=== PATIENT | male | born 1945 | race Two or more races ===

== ENCOUNTER 2022-04-30 13:12 | Emergency (ER) | payer OTHER, MEDICARE ==
[~2022-04-30 13:12] MED LIST: ATOR40TA PO; CLOP75TA33 PO; EZET10TA6 PO; FISH OIL PO; FOLI0.4T6 PO; ISOS30TA84 PO; LISI10TA27 PO; METO50TA7 PO; MULT-1085 PO; NIAC500T23 PO; TERA10CA4 PO; VITA-336 PO
== END 2022-04-30 14:55 | disposition left against medical advice (07) ==
LOC: ER 13:12
DX: K62.5 Hemorrhage of anus and rectum (principal); Z53.21 Procedure and treatment not carried out due to patient leaving prior to being seen by health care provider

== ENCOUNTER 2023-07-16 13:00 | Day surgery (SDC) | payer MEDICARE, OTHER ==
[2023-07-15 09:48] LABS: BASOPHILS % (AUTO) 0.4 % (0-1); EOSINOPHILS # (AUTO) 0.2 X10'3 (0-0.9); EOSINOPHILS % (AUTO) 5.1 % (0-6); HEMATOCRIT 31.9 % (42.0-52.0); HEMOGLOBIN 10.9 g/dl (14.0-17.9); LYMPHOCYTES # (AUTO) 2.1 X10'3 (1.1-4.8); LYMPHOCYTES % (AUTO) 43.3 % (21-51); MEAN CORPUSCULAR HEMOGLOBIN 31.6 PG (27.0-31.0); MEAN CORPUSCULAR HGB CONC 34.3 g/dL (33.0-36.5); MEAN CORPUSCULAR VOLUME 92.3 FL (78-98); MEAN PLATELET VOLUME 8.6 FL (7.4-10.4); MONOCYTES # (AUTO) 0.4 X10'3 (0-0.9); MONOCYTES % (AUTO) 7.6 % (2-12); NEUTROPHILS # (AUTO) 2.1 X10'3 (1.8-7.7); NEUTROPHILS % (AUTO) 43.6 % (42-75); PLATELET COUNT 209 X10'3 (140-440); RED BLOOD COUNT 3.46 X10'6 (4.70-6.10); RED CELL DISTRIBUTION WIDTH 12.4 % (11.5-14.5); WHITE BLOOD COUNT 4.8 X10'3 (4.5-11.0)
[2023-07-15 09:55] LABS: APTT 28 SECONDS (22-32); PROTHROMBIN TIME 10.6 SECONDS (9.0-12.0)
[2023-07-15 10:17] LABS: ALBUMIN 3.7 G/DL (3.4-5.0); ANION GAP 8 (8-16); BLOOD UREA NITROGEN 20 MG/DL (7-18); BUN/CREATININE RATIO 14.5 (10.0-20.0); CALCIUM 8.6 MG/DL (8.5-10.1); CHLORIDE 108 MMOL/L (99-107); CHOL/HDL RATIO 2.1 (0.00-4.99); CHOLESTEROL 119 MG/DL (0-200); CREATININE 1.38 MG/DL (0.60-1.10); GLUCOSE 96 MG/DL (70-104); HDL CHOLESTEROL 58 MG/DL (35-60); LDL CHOLESTEROL 47 MG/DL (50-100); POTASSIUM 4.2 MMOL/L (3.5-5.1); SODIUM 141 MMOL/L (135-145); TOTAL CARBON DIOXIDE 25.4 MMOL/L (24-32); TRIGLYCERIDES 66 MG/DL (20-135); eGFR 50 ML/MIN
[~2023-07-16] VITALS: Ht 160 cm; Wt 60.1 kg
[2023-07-16] VITALS (9 sets, daily range): BP systolic 121–160; BP diastolic 55–66; PULSE 49–54; RESP 12–14; TEMP 98.2; O2SAT 97–100
[2023-07-16] MEDS: normal saline 1,000 ML IV SCH (13:35)
[2023-07-16] MEDS ORDERED: LIDOcaine 1% 30ml preserv. free vial ONE (14:48)
[2023-07-16] MEDS ORDERED: midazolam 1 mg/ML 2ml injection ONE (14:48)
[2023-07-16] MEDS ORDERED: fentaNYL/PF 50MCG/1 ML 2ML syringe ONE (14:48)
[2023-07-16] MEDS ORDERED: iohexol 350MG/ML 100ml bottle IV ONE ×2 (14:49→16:23)
[2023-07-16] MEDS ORDERED: ASPI-1265 PO (15:05)
[2023-07-16] MEDS ORDERED: VITC500T PO (15:07)
[2023-07-16] MEDS ORDERED: FERR325T28 PO (15:07)
[2023-07-16] MEDS: LORazepam 0.5 MG tablet PO PRN (15:18)
[2023-07-16] MEDS: diphenhydrAMINE 25mg capsule PO PRN (15:18)
[2023-07-16] MEDS ORDERED: heparin 1,000unit/ml 10ml vial 10 ML ONE (16:25)
[2023-07-16] MEDS ORDERED: heparin 1,000 UNITS/NS 500ml 500 ML ONE (16:40)
[2023-07-16] MEDS ORDERED: hydrALAZINE 20mg/ml inj. IV ONE (16:51)
[2023-07-16] MEDS ORDERED: HYDROcodone/acetaminophen 10/325mg tab PO PRN (18:20)
[2023-07-16] MEDS ORDERED: HYDROcodone/acetaminophen 5mg/325mg tablet PO PRN (18:20)
== END 2023-07-16 19:50 | disposition home or self-care (01) ==
LOC: SSTAY O 13:00
PROVIDERS: ATTEND Student in an Organized Health Care Education/Training Program
DX: I25.810 Atherosclerosis of coronary artery bypass graft(s) without angina pectoris (principal); T82.855A Stenosis of coronary artery stent, initial encounter; I25.82 Chronic total occlusion of coronary artery; I10 Essential (primary) hypertension; E78.5 Hyperlipidemia, unspecified; D64.9 Anemia, unspecified; I65.29 Occlusion and stenosis of unspecified carotid artery; Z79.899 Other long term (current) drug therapy; Z79.82 Long term (current) use of aspirin; Y84.0 Cardiac catheterization as the cause of abnormal reaction of the patient, or of later complication, without mention of misadventure at the time of the procedure; Y92.89 Other specified places as the place of occurrence of the external cause
CPT/HCPCS: 36415; 80048; 80061; 85025; 85610; 85730; 93005; 93459; 93571; 99152; 99153; J0360; J1644; J2250; J3010; J3490; J7030; Q0163; Q9967; 93572; A6258; A6449; C1751; C1760; C1769; C1894

== ENCOUNTER 2023-07-23 12:50 | Day surgery (SDC) | payer OTHER ==
[~2023-07-23] VITALS: Ht 160 cm; Wt 59.5 kg
[2023-07-23] VITALS (8 sets, daily range): BP systolic 134–160; BP diastolic 50–63; PULSE 48–54; RESP 12–18; TEMP 98; O2SAT 97–98
[~2023-07-23 12:50] MED LIST changes: +ASPI-1265 PO; -CLOP75TA33 PO; +FERR325T28 PO; -FISH OIL PO; -FOLI0.4T6 PO; -NIAC500T23 PO; -TERA10CA4 PO; -VITA-336 PO; +VITC500T PO
[2023-07-23] MEDS ORDERED: diphenhydrAMINE 25mg capsule PO PRN (13:20)
[2023-07-23] MEDS ORDERED: normal saline 1,000 ML IV SCH (13:20)
[2023-07-23] MEDS ORDERED: LORazepam 0.5 MG tablet PO PRN (13:20)
[2023-07-23 13:54] LABS: BASOPHILS % (AUTO) 0.5 % (0-1); EOSINOPHILS # (AUTO) 0.2 X10'3 (0-0.9); HEMATOCRIT 31.6 % (42.0-52.0); HEMOGLOBIN 10.8 g/dl (14.0-17.9); LYMPHOCYTES % (AUTO) 42.6 % (21-51); MEAN CORPUSCULAR HEMOGLOBIN 31.8 PG (27.0-31.0); MEAN CORPUSCULAR HGB CONC 34.2 g/dL (33.0-36.5); MEAN CORPUSCULAR VOLUME 92.9 FL (78-98); MEAN PLATELET VOLUME 8.5 FL (7.4-10.4); MONOCYTES # (AUTO) 0.5 X10'3 (0-0.9); MONOCYTES % (AUTO) 9.7 % (2-12); NEUTROPHILS # (AUTO) 2.1 X10'3 (1.8-7.7); NEUTROPHILS % (AUTO) 43.2 % (42-75); PLATELET COUNT 209 X10'3 (140-440); RED CELL DISTRIBUTION WIDTH 12.9 % (11.5-14.5); WHITE BLOOD COUNT 4.8 X10'3 (4.5-11.0)
[2023-07-23 13:57] LABS: ALBUMIN 4.1 G/DL (3.4-5.0); ANION GAP 11 (8-16); BLOOD UREA NITROGEN 16 MG/DL (7-18); CALCIUM 8.9 MG/DL (8.5-10.1); CHLORIDE 105 MMOL/L (99-107); CREATININE 1.46 MG/DL (0.60-1.10); GLUCOSE 91 MG/DL (70-104); POTASSIUM 4.4 MMOL/L (3.5-5.1); SODIUM 141 MMOL/L (135-145); TOTAL CARBON DIOXIDE 24.7 MMOL/L (24-32); eGFR 47 ML/MIN
[2023-07-23 13:59] LABS: PROTHROMBIN TIME 10.7 SECONDS (9.0-12.0)
[2023-07-23] MEDS ORDERED: VITA400C71 PO (14:14)
[2023-07-23] MEDS ORDERED: CYAN100T43 PO (14:14)
[2023-07-23] MEDS ORDERED: FOLI0.8C PO (14:14)
[2023-07-23] MEDS ORDERED: fentaNYL/PF 50MCG/1 ML 2ML syringe ONE (14:27)
[2023-07-23] MEDS ORDERED: LIDOcaine 1% 30ml preserv. free vial ONE (14:27)
[2023-07-23] MEDS ORDERED: iohexol 350MG/ML 100ml bottle IV ONE (14:27)
[2023-07-23] MEDS ORDERED: midazolam 1 mg/ML 2ml injection ONE (14:27)
[2023-07-23] MEDS ORDERED: heparin 1,000unit/ml 10ml vial 10 ML ONE (14:27)
[2023-07-23 14:30] LABS: CHOLESTEROL 126 MG/DL (0-200); HDL CHOLESTEROL 63 MG/DL (35-60); LDL CHOLESTEROL 44 MG/DL (50-100); TRIGLYCERIDES 55 MG/DL (20-135)
[2023-07-23] MEDS ORDERED: diphenhydrAMINE 50 mg/ml inj ONE (15:14)
[2023-07-23] MEDS ORDERED: clopidogrel 300mg tablet ONE (16:16)
[2023-07-23] MEDS ORDERED: aspirin 325mg tablet ONE (16:22)
[2023-07-23] MEDS ORDERED: HYDROcodone/acetaminophen 10/325mg tab PO PRN (16:55)
[2023-07-23] MEDS ORDERED: HYDROcodone/acetaminophen 5mg/325mg tablet PO PRN (16:55)
== END 2023-07-23 19:05 | disposition home or self-care (01) ==
LOC: SSTAY O 12:50
PROVIDERS: ATTEND Student in an Organized Health Care Education/Training Program
DX: I25.810 Atherosclerosis of coronary artery bypass graft(s) without angina pectoris (principal); I10 Essential (primary) hypertension; E78.00 Pure hypercholesterolemia, unspecified; Z79.899 Other long term (current) drug therapy; Z95.1 Presence of aortocoronary bypass graft
CPT/HCPCS: 36415; 80048; 80061; 85025; 85610; 93005; 93454; C1874; C9600; J1200; J1644; J2250; J3010; J3490; J7030; Q9967; 99152; 99153; A6258; C1725; C1751; C1760; C1769; C1892